=== PATIENT | female | born 2000 | race Caucasian/White ===

== ENCOUNTER 2018-12-29 22:34 | Inpatient (IN) | payer OTHER ==
[~2018-12-29] VITALS: Ht 162.6 cm; Wt 67.2 kg
[2018-12-29] MEDS ORDERED: REXALTI PO (23:03)
[2018-12-29] MEDS ORDERED: buspar (23:03)
[2018-12-29] MEDS ORDERED: tenex (23:03)
[2018-12-29] MEDS ORDERED: antibiotic PO (23:03)
[2018-12-29 23:23] LABS: HEMATOCRIT 37.7 % (36.0-47.0); HEMOGLOBIN 12.7 g/dl (12.0-15.5); MEAN CORPUSCULAR HEMOGLOBIN 30.3 pg (27.0-33.0); MEAN CORPUSCULAR HGB CONC 33.7 g/dl (32.0-36.5); PLATELET COUNT, AUTOMATED 283 10^3/uL (150-450); RED BLOOD COUNT 4.19 10^6/uL (4.00-5.40); WHITE BLOOD COUNT 9.2 10^3/uL (4.0-10.0)
[2018-12-29 23:40] LABS: HCG, SERUM QUALITATIVE NEGATIVE (NEGATIVE)
[2018-12-29 23:48] LABS: AMPHETAMINES LEVEL URINE NEGATIVE (NEGATIVE); BARBITURATES URINE NEGATIVE (NEGATIVE); BENZODIAZEPINES URINE NEGATIVE (NEGATIVE); CANNABINOIDS URINE NEGATIVE (NEGATIVE); COCAINE METABOLITE URINE NEGATIVE (NEGATIVE); METHADONE URINE NEGATIVE (NEGATIVE); OPIATES URINE NEGATIVE (NEGATIVE); PHENCYCLIDINE URINE NEGATIVE (NEGATIVE)
[2018-12-30 00:02] LABS: ACETAMINOPHEN LEVEL < 2.0 UG/ML (10.0-30.0); ALBUMIN 3.6 GM/DL (3.2-5.2); ALT/SGPT 12 U/L (12-78); BILIRUBIN,DIRECT < 0.1 MG/DL (0.0-0.2); BILIRUBIN,TOTAL 0.2 MG/DL (0.2-1.0); BLOOD UREA NITROGEN 8 MG/DL (7-18); CALCIUM LEVEL 8.7 MG/DL (8.5-10.1); CARBON DIOXIDE LEVEL 29 MEQ/L (21-32); CHLORIDE LEVEL 108 MEQ/L (98-107); CREATININE FOR GFR 0.66 MG/DL (0.55-1.30); ETHYL ALCOHOL (ETHANOL) < 0.003 % (0.000-0.010); GLUCOSE, FASTING 96 MG/DL (70-100); POTASSIUM SERUM 3.4 MEQ/L (3.5-5.1); SALICYLATE LEVEL < 1.7 MG/DL (5.0-30.0); SODIUM LEVEL 142 MEQ/L (136-145); THYROID STIMULATING HORMONE 0.583 uIU/ML (0.463-3.98); TOTAL PROTEIN 6.7 GM/DL (6.4-8.2)
[2018-12-30] MEDS ORDERED: POTASSIUM CHLORIDE 10 MEQ SR TABLET PO ONE (00:15)
[2018-12-30] MEDS ORDERED: DOXY100C PO (09:13)
[2018-12-30] MEDS ORDERED: MAALOX 30 ML SUSP *UDC PO PRN (12:30)
[2018-12-30] MEDS ORDERED: MOM 30ML SUSPENSION UDC PO PRN (12:30)
[2018-12-30] MEDS ORDERED: ACETAMINOPHEN TAB 650MG DOSE (2X325MG) PO PRN (12:30)
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
[2018-12-30 18:18] VITALS: BP 109/68
[2018-12-30] MEDS: traZODone 50 MG TAB PO PRN (22:26)
[2018-12-31 06:36] VITALS: BP 94/50
[2018-12-31] MEDS ORDERED: BREXPIPRAZOLE 0.5MG TABLET (REXULTI) PO SCH (09:00)
[2018-12-31] MEDS: DOXYCYCLINE HYCLATE 100 MG TAB PO SCH ×2 (09:53→21:30)
[2018-12-31] MEDS ORDERED: BREXPIPRAZOLE 0.5MG TABLET (REXULTI) PO ONE (13:00)
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
[2018-12-31 18:00] VITALS: BP 100/58
[2018-12-31] MEDS: traZODone 50 MG TAB PO PRN (21:29)
[2019-01-01 06:35] VITALS: BP 106/51
[2019-01-01] MEDS: BREXPIPRAZOLE 0.5MG TABLET (REXULTI) PO SCH (08:57)
[2019-01-01] MEDS: DOXYCYCLINE HYCLATE 100 MG TAB PO SCH ×2 (08:57→20:32)
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
[2019-01-01 17:53] VITALS: BP 106/51
[2019-01-01 18:00] VITALS: BP 115/61
[2019-01-01] MEDS: traZODone 50 MG TAB PO PRN (20:32)
[2019-01-01 20:50] VITALS: BP 134/75
[2019-01-01] MEDS ORDERED: hydrOXYzine 50 MG TAB PO PRN (21:00)
[2019-01-02 06:27] VITALS: BP 106/58
[2019-01-02] MEDS: BREXPIPRAZOLE 0.5MG TABLET (REXULTI) PO SCH (09:08)
[2019-01-02] MEDS: DOXYCYCLINE HYCLATE 100 MG TAB PO SCH (09:08)
[2019-01-02] MEDS ORDERED: HYDRO50TAB PO (10:48)
[2019-01-02] MEDS ORDERED: REXU1TAB2 PO (10:48)
[2019-01-02] MEDS ORDERED: REXU1TAB3 PO (11:31)
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
== END 2019-01-02 11:23 | disposition home or self-care (01) | DRG 885 ==
LOC: M ED 22:34 → M ED INP 12-30 12:25 → M PSY 12-30 13:45
PROVIDERS: ADMIT Psychiatry & Neurology Psychiatry; ATTEND Psychiatry & Neurology Addiction Medicine
DX: F31.9 Bipolar disorder, unspecified (principal); F60.3 Borderline personality disorder; F10.11 Alcohol abuse, in remission; Z81.8 Family history of other mental and behavioral disorders; Z81.3 Family history of other psychoactive substance abuse and dependence; Z62.810 Personal history of physical and sexual abuse in childhood; Z91.5 Personal history of self-harm; T43.596A Underdosing of other antipsychotics and neuroleptics, initial encounter; Z91.128 Patient's intentional underdosing of medication regimen for other reason